=== PATIENT | male | born 1940 ===

== ENCOUNTER 2021-12-31 19:10 | Emergency (ER) | payer SELFPAY ==
[~2021-12-31] VITALS: Ht 170.2 cm; Wt 65.8 kg
--- NOTE | 2021-12-31 21:00 | NUR ---
Patient BIB son-in-law from home for request for Rx for cephalexin 500mg. Per family patient had a cyst remval 2 days ago in [facility] and arrived yesterday and lost his medication.
--- NOTE | 2021-12-31 21:24 | NUR ---
Dr. Cheng on bedside for MSE.
[2021-12-31] MEDS ORDERED: CEPH500C2 PO (21:36)
[2021-12-31 21:39] VITALS: BP 137/58
--- NOTE | 2021-12-31 21:39 | NUR ---
Patient discharged to home in stable condition. Written and verbal after care instructions given. Patient verbalizes understanding of instructions. Stressed follow up or return to ER for worsening s/s. Patient ambulated fr the ER with steady gait. All belongings with patient.
== END 2021-12-31 21:40 | disposition home or self-care (01) ==
LOC: ER 19:12
DX: S21.209A Unspecified open wound of unspecified back wall of thorax without penetration into thoracic cavity, initial encounter (principal); X58.XXXA Exposure to other specified factors, initial encounter; Y92.89 Other specified places as the place of occurrence of the external cause; F09 Unspecified mental disorder due to known physiological condition; F03.90 Unspecified dementia, unspecified severity, without behavioral disturbance, psychotic disturbance, mood disturbance, and anxiety
CPT/HCPCS: 87070; A4663